=== PATIENT | female | born 1945 | race Caucasian/White ===

== ENCOUNTER 2016-09-14 14:56 | Emergency (ER) | payer OTHER, MEDICARE ==
[2016-09-14 15:01] VITALS: BMI 39.4
[2016-09-14 15:27] VITALS: BP 165/87
--- NOTE | 2016-09-14 15:51 | DR.GENAD ---
HPI - PCP Primary Care Physician: lópez - Complaint/Symptoms Chief Complaint Doctors Comments: Patient states she noticed her right eye dilated today with blurred vision and headache. Family states she has had this problem for 2-3 days but the patient stated she noticed the problem two days ago. States the pain is 4-5 of 10. States this is not the worst headache of her life and she has had migraines before. She has nausea but denies chest pain of SOB. States she had cataract surgery on the left eye before but denies history glaucoma. She is a patient of Dr. Vera but has not seen him in his office yet. States she goes to the [place]. She denies any eye trauma. Chief Complaint:: patient stated she woke up this morning and noticed her right eye was dilated. she has been having headaches and blurred vision. - Nurses notes reviewed Nurses Notes Review: Yes - Source History Provided: Patient - Mode of Arrival Mode of Arrival: Ambulatory - Timing Onset of Chief Complaint: 09/12/16 Came on: Suddenly - Duration Duration: Constant How lon Duration: Days - Location Location: right eye dilated - Severity Severity: Moderate - Modifying Factors Worsens:: nothing Improves:: nothing PMH - PMH Past Medical History: Yes Past Medical History: Dyslipidemia, Hypertension, Hypothyroidism Past Surgical History: Yes Surgical History: Appendectomy, Hysterectomy Past Surgical History Comment: eye surgery - Family History History of Family Medical Conditions: No - Social History Does patient currently use any type of tobacco product: No Have you used tobacco products in the last 12 months: No Type of Tobacco Use: None Does any household member use tobacco: No Alcohol Use: None Do you use any recreational Drugs:: No Lives With: Family Lives Where: Home - infectious screening In the last 2 months have you had wt loss of >10#?: NO Have you had fever, night sweats or hemotysis?: No Have you traveled outside the country in the last 6 months?: No Isolation: Standard ROS - Review of Systems Constitutional: No Symptoms Reported. negative: See HPI, Chills, Diaphoresis, Fever, Malaise, Weakness, Irritable, Fatigue, Loss of Appetite, Other Eyes: No Symptoms Reported, Eye Pain, Blurred Vision ENTM: No Symptoms Reported. negative: See HPI, Ear Pain, Ear Discharge, Pulling on Ears, Hearing Loss, Nose Pain, Nose Discharge, Epistaxis, Nose Congestion, Mouth Pain, Mouth Swelling, Loose Teeth, Drooling, Throat Pain, Throat Swelling, Ear Foreign Body Respiratoy: No Symptoms Reported. negative: See HPI, Productive Cough, Non- Productive Cough, Moist Cough, Dry Cough, Hacking Cough, Barking Cough, Brassy Cough, Orthopnea, Short of Breath, Stridor, Wheezing, Hemoptysis, Other Cardiovascular: No Symptoms Reported Gastrointestinal/Abdominal: No Symptoms Reported. negative: See HPI, Abdominal Pain, Constipation, Diarrhea, Nausea, Vomiting, Food Intolerance, Other Genitourinary: No Symptoms Reported Neurological: No Symptoms Reported Musculoskeletal: No Symptoms Reported Integumentary: No Symptoms Reported Hematologic/Lymphatic: No Symptoms Reported Endocrine: No Symptoms Reported Psychiatric: No Symptoms Reported PE - Vital Signs Vitals: Temperature 98.1 F Pulse Rate [Left Brachial] 65 Pulse Rate 72 Respiratory Rate 16 Blood Pressure [Left Arm] 165/87 Blood Pressure 189/89 O2 Sat by Pulse Oximetry 99 - General Limitations: No Limitations General Appearance: Alert, In Distress (mild) - Head Head Exam: Normal Inspection, Atraumatic, Normocephalic - Eyes Eye exam: Normal Appearance, EOMI. negative: PERRL, Scleral Icterus (good range of motion eyes; no problems with eyelids; no pytosis), Conjunctival Injection, Nystagmus, Miosis, Mydrasis, Periorbital Swelling, Periorbital Tenderness, Other - ENT ENT Exam: Normal Exam, Normal Oropharynx, Normal External Ear Exam, Mucous Membranes Moist, TM's Normal Bilaterally External Ear Exam: Normal External Inspection TM/Canal Exam: Bilateral Normal Nose Exam: Normal Nose Exam Mouth Exam: Normal Inspection Throat Exam: Normal Inspection - Neck Neck Exam: Normal Inspection, Full ROM, Trachea Midline - Chest Chest Inspection: Normal Inspection, Symmetric Chest Wall Rise - Respiratory Respiratory Exam: Normal Lung Sounds Bilat Respiratory Exam: Bilateral Clear to Auscultation - Cardiovascular Cardiovascular Exam: Regular Rate, Normal Rhythm, Normal Heart Sounds - Abdominal Exam Abdominal Exam: Normal Inspection, Normal Bowel Sounds, Soft Abdominal Tenderness: negative: RUQ, RLQ, LUQ, LLQ, Epigastrium, Suprapubic, Diffuse, Mild, Moderate, Severe, Other - Extremities Extremities Exam: Normal Inspection, Full ROM, Normal Capillary Refill. negative: Tenderness, Edema, Joint Swelling, Calf Tenderness, Other - Back Back Exam: Normal Inspection, Full ROM. negative: Tenderness, (R) CVA Tenderness, (L) CVA Tenderness, Muscle Spasm, Paraspinal Tenderness, Vertebral Tenderness, Rashes, (R) Sciatic Notch Tenderness, (L) Sciatic Notch Tendern, (R ) Straight Leg Raise, (L) Straight Leg Raise, Other - Neurologic Neurological Exam: Alert, Oriented X3, CN II-XII Intact, Normal Gait, Reflexes Normal. negative: Motor Sensory Deficit (Babinski absent; tongue midline) - Psychiatric Psychiatric Exam: Normal Affect, Normal Mood. negative: Depressed, Agitated, Anxious, Flat Affect, Manic, Homicidal Ideation, Suicidal Ideation, Other - Skin Skin Exam: Warm, Dry, Intact, Normal Color Course - Consultation Called: 16:31 Call Returned: 16:31 Consultation Comments: Dr. Mccurdy consulted states he will see patient in his office Friday morning or she can call his office for the on-call number and call him today if she has increased pain or visual changes. - Education/Counseling Education/Counseling: Patient, Family Educated On: Treatment, Diagnosis, Needs for Follow Up ROR - Labs Reviewed Laboratory Results Reviewed?: Yes (All labs and x-ray results reviewed and discussed with patient and spouse) Result Diagrams: 09/14/16 15:45 09/14/16 15:45 Laboratory: WBC 6.1 X10^3/uL (3.6-10.0) 09/14/16 15:45 RBC 4.69 X10^6/uL (3.5-5.4) 09/14/16 15:45 Hgb 13.3 g/dL (12.0-16.0) 09/14/16 15:45 Hct 39.3 % (36.0-47.0) 09/14/16 15:45 MCV 83.7 fL (80.0-100.0) 09/14/16 15:45 MCH 28.3 pg (27.0-34.0) 09/14/16 15:45 MCHC 33.8 g/dL (33.0-35.0) 09/14/16 15:45 RDW 13.6 % (11.6-16.5) 09/14/16 15:45 Plt Count 218 X10^3/uL (150.0-450.0) 09/14/16 15:45 MPV 7.3 fL (7.4-11.0) L 09/14/16 15:45 Neut % 49.4 % (42.0-75.0) 09/14/16 15:45 Lymph % 39.3 % (21.0-51.0) 09/14/16 15:45 [place] % 7.8 % (0.0-13.0) 09/14/16 15:45 Eos % 2.5 % (0.9-2.9) 09/14/16 15:45 Baso % 1.0 % (0.2-1.0) 09/14/16 15:45 Neut # 3.0 x10^3/uL (2.2-4.8) 09/14/16 15:45 Lymph # 2.4 X10^3/uL (1.3-2.9) 09/14/16 15:45 [place] # 0.5 x10^3/uL (0.3-0.8) 09/14/16 15:45 Eos # 0.2 x10^3/uL (0.0-0.2) 09/14/16 15:45 Baso # 0.1 X10^3/uL (0.0-0.1) 09/14/16 15:45 Absolute Nucleated RBC 0.0 /100WBC 09/14/16 15:45 Sodium 145 mmol/L (136-145) 09/14/16 15:45 Corrected Sodium TNP 09/14/16 15:45 Potassium 3.8 mmol/L (3.5-5.1) 09/14/16 15:45 Chloride 107 mmol/L (98-107) 09/14/16 15:45 Carbon Dioxide 25.1 mmol/L (21-32) 09/14/16 15:45 BUN 14 mg/dL (7-18) 09/14/16 15:45 Creatinine 0.87 mg/dL (0.55-1.02) 09/14/16 15:45 Est GFR (MDRD) Af Amer > 60 (>60) 09/14/16 15:45 Est GFR (MDRD) Non-Af > 60 (>60) 09/14/16 15:45 Glucose 90 mg/dL (65-99) 09/14/16 15:45 Calcium 9.0 mg/dL (8.5-10.1) 09/14/16 15:45 Corrected Calcium TNP 09/14/16 15:45 Total Bilirubin 0.30 mg/dL (0.2-1.0) 09/14/16 15:45 AST 15 Units/L (15-37) 09/14/16 15:45 ALT 24 Units/L (12-78) 09/14/16 15:45 Alkaline Phosphatase 81 Units/L (46-116) 09/14/16 15:45 Total Protein 7.6 g/dL (6.4-8.2) 09/14/16 15:45 Albumin 4.0 g/dL (3.4-5.0) 09/14/16 15:45 Globulin 3.6 g/dL (2.5-4.5) 09/14/16 15:45 Albumin/Globulin Ratio 1.1 Ratio (1.1-2.1) 09/14/16 15:45 - XRAY XRAY Interpreted by: Radiologist (CT head: No acut eintracranial abnormality identified.) - Diagnosis Discharge Problem: Pain in right eye, dilated right eye, Hypertension, Blurred vision, right eye - Discharge Plan Disposition: 01 HOME, SELF-CARE Condition: Stable - Follow ups/Referrals Follow ups/Referrals: Too Vera [Primary Care Provider] - 3 days LATRICE MCCURDY [CONSULTING PHYSICIAN] - 3 days - Instructions Instructions: Blurred Vision, Hypertension
[2016-09-14 15:55] LABS: BASOPHILS # (AUTO) 0.1 X10^3/uL (0.0-0.1); EOSINOPHILS # (AUTO) 0.2 x10^3/uL (0.0-0.2); EOSINOPHILS % (AUTO) 2.5 % (0.9-2.9); HEMATOCRIT 39.3 % (36.0-47.0); HEMOGLOBIN 13.3 g/dL (12.0-16.0); LYMPHOCYTES # (AUTO) 2.4 X10^3/uL (1.3-2.9); LYMPHOCYTES % (AUTO) 39.3 % (21.0-51.0); MEAN CORPUSCULAR HEMOGLOBIN 28.3 pg (27.0-34.0); MEAN CORPUSCULAR HGB CONC 33.8 g/dL (33.0-35.0); MEAN CORPUSCULAR VOLUME 83.7 fL (80.0-100.0); MEAN PLATELET VOLUME 7.3 fL (7.4-11.0); MONOCYTES # (AUTO) 0.5 x10^3/uL (0.3-0.8); MONOCYTES % (AUTO) 7.8 % (0.0-13.0); NEUTROPHILS % (AUTO) 49.4 % (42.0-75.0); PLATELET COUNT 218 X10^3/uL (150.0-450.0); RED BLOOD COUNT 4.69 X10^6/uL (3.5-5.4); RED CELL DISTRIBUTION WIDTH 13.6 % (11.6-16.5); WHITE BLOOD COUNT 6.1 X10^3/uL (3.6-10.0)
[2016-09-14 16:03] LABS: ALANINE AMINOTRANSFERASE 24 Units/L (12-78); ALKALINE PHOSPHATASE 81 Units/L (46-116); ASPARTATE AMINO TRANSFERASE 15 Units/L (15-37); BLOOD UREA NITROGEN 14 mg/dL (7-18); CARBON DIOXIDE 25.1 mmol/L (21-32); CHLORIDE 107 mmol/L (98-107); CREATININE 0.87 mg/dL (0.55-1.02); GLUCOSE 90 mg/dL (65-99); SODIUM 145 mmol/L (136-145); TOTAL PROTEIN 7.6 g/dL (6.4-8.2); eGFR BLACK RACES > 60 (>60); eGFR NON BLACK RACES > 60 (>60)
--- NOTE | 2016-09-14 16:04 | CT ---
CT head without contrast Indication: Right eye dilated Comparison: None Technique: CT images of the head were obtained without contrast. Automatic exposure control was util ized. Findings: There is generalized mild age-appropriate atrophy. No acute bleed, mass, mass effect, or a bnormal extra-axial collection is identified. No acute skeletal abnormality is seen. The visualized paranasal sinuses and mastoid air cells are clear. Impression: No acute intracranial abnormality identified. Reported By:
== END 2016-09-14 16:54 | disposition home or self-care (01) ==
LOC: ER 15:05
DX: H57.11 Ocular pain, right eye (principal); H57.051 Tonic pupil, right eye; I10 Essential (primary) hypertension; H53.8 Other visual disturbances; R51 Headache
CPT/HCPCS: 36415; 70450; 80053; 85025; 99282; 99283

== ENCOUNTER → 2016-09-16 | Outpatient (CLI) | payer OTHER, MEDICARE ==
[2016-09-14 15:27] VITALS: BP 165/87
[~2016-09-16] MED LIST: VALIUM PO ONE
--- NOTE | 2016-09-16 14:12 | MRI ---
STUDY: MRA OF THE BRAIN HISTORY: Headaches and dizziness. Pupil involving 3rd nerve palsy. Comparison: None. Technique: 3D [id number] imaging of the intracranial circulation was performed. Findings: 3D [id number] MRA examination shows normal flow related enhancement in the major intracranial ar teries. There is no evidence of hemodynamically significant stenosis or aneurysm. There are bilatera l posterior communicating arteries. The left vertebral artery is dominant. IMPRESSION: 1. Normal MRA of the brain. 2. If there remains strong clinical concern for cerebral aneurysm, then would consider a CTA of the head or catheter angiogram further evaluation. Reported By:
--- NOTE | 2016-09-16 14:27 | MRI ---
Indication: Headaches and 3rd nerve palsy. Exam: MRI brain with and without contrast. Technique: Routine multiplanar multi sequence imaging was performed through the brain with thin sect ion targeted axial and coronal images obtained through the orbits before and after administration of 20 cc of Omniscan. Comparison: CT head 09/14/2016. Findings: The ventricles are normal . There is no abnormal signal on the diffusion-weighted data set which would suggest any type of acute ischemia . There are several small punctate areas of abnormal signal scattered along the periventricular white matter bilaterally . There is no extra-axial fluid collection or mass. No enhancing lesion or mass is seen and there is no extra-axial fluid collectio n. The intra-ocular muscles and optic nerves are symmetric and normal size and signal intensity thro ughout. No intraorbital mass or fluid is seen and there is no abnormal enhancement seen. The pituita ry gland and midline structures are unremarkable. There is a 2.5 x 1.4 cm slightly expansile cystic appearing lesion in the right parietal region of the skull superiorly and laterally which correlates with the lucent lesion seen on the recent CT scan. The lesion is low signal on T1 and homogeneously increased in signal on T2. The lesion is otherwise fairly well-circumscribed with no surrounding ed jason and does not appear to enhance. The 7th and 8th nerve complexes are symmetric and normal size an d signal intensity. The visualized vascular structures show normal flow voids. Impression: Minimal chronic microischemic changes in the deep white matter with no acute intracranial abnormalit y seen and specifically, unremarkable orbits . 2.5 cm cystic-appearing lesion within the right parietal bone which is slightly expansile and does n ot enhance. This is seen on the recent CT scan and could represent an intraosseous cyst or hemangiom a or less likely a plasmacytoma vs bone lesion of other etiology. Suggest correlating with a bone sc an to evaluation of the metabolic activity of the lesion. Reported By:
== END ==
LOC: RAD 10:09
PROVIDERS: ATTEND Optometrist
DX: H49.01 Third [oculomotor] nerve palsy, right eye (principal)
CPT/HCPCS: 70544; 70553

== ENCOUNTER → 2017-09-03 | Outpatient (CLI) | payer OTHER ==
--- NOTE | 2017-09-03 16:26 | MRI ---
HISTORY: Low back pain with left lower extremity radiculopathy, spondylolisthesis Study: MRI lumbar spine without contrast Comparison: None Technique: Multisequence, multiplanar imaging of the lumbar spine was performed without the administration of IV contrast. Findings: Imaging of the lumbar spine demonstrates mild, grade 1, retrolisthesis of L2 on L3, likely secondary to facet hypertrophy at this level. There is also minimal retrolisthesis of L5 on S1 and L1 on L2 as well. Vertebral body height is maintained throughout. No acute or chronic compression fracture is vis ualized. There is no suspicious bone marrow edema. Mljn-ah-flqkrpoj loss of disc space height and adv anced degenerative endplate changes are present at the L4-L5 level. Mild degenerative endplate change s are visualized at the remaining lumbar levels. The conus terminates at the L2 superior endplate. Ev aluation of the pre and paravertebral soft tissues is unremarkable. Incidental note is made of a left circumaortic renal vein. T12-L1: At the T12-L1 level there is facet hypertrophy without significant canal stenosis or neurofor aminal compromise. L1-L2: At the L1-L2 level there is a mild central disc bulge and mild facet hypertrophy, resulting in no significant canal stenosis or neuroforaminal compromise. L2-L3: At the L2-L3 level there is a broad-based disc bulge and facet hypertrophy as well as mildly p rominent epidural fat, all resulting in mild canal stenosis but no significant neuroforaminal comprom ise. L3-L4: At the L3-L4 level there is a tiny left lateral recess disc protrusion superimposed upon mild broad-based disc ridging and facet hypertrophy with ligamentum flavum thickening, all resulting in mi ld canal stenosis as well as minimal bilateral neuroforaminal compromise. L4-L5: At the L4-L5 level there is a small left lateral recess disc protrusion superimposed upon a mi ld broad-based disc bulge as well as facet hypertrophy and ligamentum flavum thickening, all resultin g in [id number] neuroforaminal compromise on the left and mild neuroforaminal compromise on the right but no significant canal stenosis. L5-S1: At the L5-S1 level a left lateral recess disc protrusion superimposed upon a broad-based disc bulge as well as advanced facet hypertrophy, resulting in moderate to severe neuroforaminal compromis e on the left and minimal neuroforaminal compromise on the right but no significant canal stenosis. IMPRESSION: 1. Multilevel degenerative disc disease and facet arthropathy as detailed above, most significant at the L5-S1 level, where there is moderate to severe neuroforaminal compromise on the left and minimal neuroforaminal compromise on the right. 2. Multilevel mild spondylolistheses as above Reported By:
== END | disposition home or self-care (01) | DRG 552 ==
LOC: RAD 14:44
PROVIDERS: ATTEND Internal Medicine Rheumatology
DX: M54.16 Radiculopathy, lumbar region (principal); M70.62 Trochanteric bursitis, left hip; M70.52 Other bursitis of knee, left knee; M43.17 Spondylolisthesis, lumbosacral region
CPT/HCPCS: 72148

== ENCOUNTER 2018-01-21 14:30 | Observation (INO) ==
--- NOTE | 2018-01-21 15:12 | CT ---
HISTORY: Headache, blurry vision Study: CT HEAD WITHOUT CONTRAST Comparison: 09/14/2016 Technique: Multiple axial images of the brain were obtained from the skull base to the vertex without administra tion of IV contrast. Findings: There is no evidence of an acute intracranial hemorrhage or extra-axial fluid collection. There is no evidence of mass effect, midline shift, or cerebral edema. Ventricular size is normal. Cortical alonso -white matter differentiation is preserved. There is no sulcal effacement identified. There is no wel l demarcated, acute, large artery territorial infarct identified on the initial CT of the head. The c alvarium is intact. Paranasal sinuses and mastoid air cells are clear. Hyperostosis frontalis interna is observed. IMPRESSION: 1. No acute intracranial abnormality can be identified. If there is clinical concern for an occult neurologic abnormality, follow-up MRI is recommended for i mproved sensitivity. Reported By:
[2018-01-21 15:48] LABS: BASOPHILS % (AUTO) 0.3 % (0.2-1.0); EOSINOPHILS # (AUTO) 0.3 x10^3/uL (0.0-0.2); HEMATOCRIT 39.3 % (36.0-47.0); HEMOGLOBIN 13.4 g/dL (12.0-16.0); LYMPHOCYTES % (AUTO) 29.4 % (21.0-51.0); MEAN CORPUSCULAR HEMOGLOBIN 28.8 pg (27.0-34.0); MEAN CORPUSCULAR VOLUME 84.6 fL (80.0-100.0); MEAN PLATELET VOLUME 7.1 fL (7.4-11.0); MONOCYTES # (AUTO) 0.5 x10^3/uL (0.3-0.8); MONOCYTES % (AUTO) 6.8 % (0.0-13.0); NEUTROPHILS % (AUTO) 59.5 % (42.0-75.0); PLATELET COUNT 232 X10^3/uL (150.0-450.0); RED BLOOD COUNT 4.65 X10^6/uL (3.5-5.4); WHITE BLOOD COUNT 6.7 X10^3/uL (3.6-10.0)
[2018-01-21 16:09] LABS: BLOOD UREA NITROGEN 10 mg/dL (7-18); CALCIUM 8.6 mg/dL (8.5-10.1); CARBON DIOXIDE 28.2 mmol/L (21-32); CHLORIDE 106 mmol/L (98-107); COR NA(FOR HYPERGLY) 143 mmol/L (136-145); CREATININE 0.94 mg/dL (0.55-1.02); SODIUM 142 mmol/L (136-145); TROPONIN I < 0.02 ng/mL (0-1.5); eGFR NON BLACK RACES > 60 (>60)
[2018-01-21 16:24] LABS: ALANINE AMINOTRANSFERASE 28 Units/L (12-78); ALBUMIN 3.5 g/dL (3.4-5.0); ALKALINE PHOSPHATASE 82 Units/L (46-116); ASPARTATE AMINO TRANSFERASE 13 Units/L (15-37); CKMB % 2.3 % (<4); CREATINE KINASE 43 Units/L (26-192); CREATINE KINASE MB < 1.0 ng/mL (0-4.0); TOTAL PROTEIN 6.8 g/dL (6.4-8.2)
[2018-01-21] MEDS ORDERED: ANTIVERT TAB 25 MG PO PRN (16:31)
[2018-01-21 17:52] VITALS: BMI 39.8
[2018-01-21] MEDS ORDERED: ALBUTEROL SULFATE IN SCH (21:00)
[2018-01-21] MEDS ORDERED: VENTOLIN or PROAIR HFA IN SCH (21:00)
[2018-01-21] MEDS ORDERED: ZOCOR TAB 20 MG PO SCH (21:00)
[2018-01-21] MEDS: PROVENTIL NEB TX 0.083% 2.5MG/ 3ML NEB SCH (21:18)
[2018-01-21] MEDS ORDERED: ROBITUSSIN DM PO PRN (22:51)
--- NOTE | 2018-01-22 00:03 | DR.HEADACH ---
HPI Time Seen Time seen: 14:50 Primary Care Physician Primary Care Physician: CT Complaint/Symptoms Chief Complaint:: PT. STATES AROUND 30 MINUTES [employer] HER VISION BECAME BLURRY IN HER RIGHT EYE, SHE GOT A HEADACHE, AND WAS UNABLE TO SPEAK. THE EPISODE LASTED ABOUT 10-15 MINUTES. SYMPTOMS HAVE RESOLVED EXCEPT FOR HER HEADACHE. Source History Provided: Patient and Family Member Mode of Arrival Mode of Arrival: Ambulatory Timing Onset of Chief Complaint: 01/21/18 PMH PMH Past Medical History: Yes Past Medical History: Dyslipidemia, Hypertension and Hypothyroidism Past Surgical History: Yes Surgical History: Appendectomy and Hysterectomy Family History History of Family Medical Conditions: Yes Family Medical History: [place] Social History Does patient currently use any type of tobacco product: No Have you used tobacco products in the last 12 months: No Type of Tobacco Use: None Does any household member use tobacco: No Alcohol Use: None Do you use any recreational Drugs:: No Lives With: Spouse Lives Where: Home infectious screening In the last 2 months have you had wt loss of >10#?: NO Have you had fever, night sweats or hemotysis?: No Have you traveled outside the country in the last 6 months?: No Isolation: Standard PE Vital Signs Vitals: Temperature 98.4 F Pulse Rate [Left Brachial] 73 Pulse Rate 76 Respiratory Rate 20 Blood Pressure [Right Arm] 134/75 Blood Pressure [Left Arm] 182/88 Blood Pressure 140/70 O2 Sat by Pulse Oximetry 97 General Limitations: No Limitations General Appearance: Alert and In No Apparent Distress Head Head Exam: Normal Inspection, Atraumatic and Normocephalic Eyes Eye exam: Normal Appearance, PERRL and EOMI Eyelids: Normal Inspection: Bilateral Pupils: Regular, Round: Bilateral Sclera/Conjunctival: Normal Inspection: Bilateral ENT ENT Exam: Normal Exam, Normal Oropharynx and Normal External Ear Exam External Ear Exam: Normal External Inspection and Auricular Hematoma TM/Canal Exam: Bilateral: Normal Nose Exam: Normal Nose Exam Mouth Exam: Normal Inspection Teeth Exam: Normal Inspection Neck Neck Exam: Normal Inspection Chest Chest Inspection: Normal Inspection and Symmetric Chest Wall Rise Respiratory Respiratory Exam: Normal Lung Sounds Bilat Respiratory Exam: Bilateral: Clear to Auscultation Cardiovascular Cardiovascular Exam: Regular Rate and Normal Rhythm Abdominal Exam Abdominal Exam: Normal Inspection and Normal Bowel Sounds Abdominal Tenderness: negative RUQ, RLQ and LUQ Extremities Extremities Exam: Normal Inspection and Full ROM Back Back Exam: Normal Inspection Neurologic Neurological Exam: Alert, Oriented X3 and CN II-XII Intact Psychiatric Psychiatric Exam: Normal Affect and Normal Mood Skin Skin Exam: Warm, Dry and Intact COURSE Consultation Called: 15:15 Call Returned: 15:25 Consultation Comments: Dr. Sher agreed to admit for further evaluation ROR Labs Reviewed Result Diagrams: 01/21/18 15:35 01/21/18 15:35 Laboratory: WBC 6.7 X10^3/uL (3.6-10.0) 01/21/18 15:35 RBC 4.65 X10^6/uL (3.5-5.4) 01/21/18 15:35 Hgb 13.4 g/dL (12.0-16.0) 01/21/18 15:35 Hct 39.3 % (36.0-47.0) 01/21/18 15:35 MCV 84.6 fL (80.0-100.0) 01/21/18 15:35 MCH 28.8 pg (27.0-34.0) 01/21/18 15:35 MCHC 34.0 g/dL (33.0-35.0) 01/21/18 15:35 RDW 14.0 % (11.6-16.5) 01/21/18 15:35 Plt Count 232 X10^3/uL (150.0-450.0) 01/21/18 15:35 MPV 7.1 fL (7.4-11.0) L 01/21/18 15:35 Neut % (Auto) 59.5 % (42.0-75.0) 01/21/18 15:35 Lymph % (Auto) 29.4 % (21.0-51.0) 01/21/18 15:35 [place] % (Auto) 6.8 % (0.0-13.0) 01/21/18 15:35 Eos % (Auto) 4.0 % (0.9-2.9) H 01/21/18 15:35 Baso % (Auto) 0.3 % (0.2-1.0) 01/21/18 15:35 Neut # (Auto) 4.0 x10^3/uL (2.2-4.8) 01/21/18 15:35 Lymph # (Auto) 2.0 X10^3/uL (1.3-2.9) 01/21/18 15:35 [place] # (Auto) 0.5 x10^3/uL (0.3-0.8) 01/21/18 15:35 Eos # (Auto) 0.3 x10^3/uL (0.0-0.2) H 01/21/18 15:35 Baso # (Auto) 0.0 X10^3/uL (0.0-0.1) 01/21/18 15:35 Absolute Nucleated RBC 0.0 /100WBC 01/21/18 15:35 INR Target Range - 01/21/18 15:35 INR 0.92 (0.8-1.3) 01/21/18 15:35 APTT 26.7 SECONDS (22.9-36.5) 01/21/18 15:35 PTT Comment - 01/21/18 15:35 Sodium 142 mmol/L (136-145) 01/21/18 15:35 Corrected Sodium 143 mmol/L (136-145) 01/21/18 15:35 Potassium 3.7 mmol/L (3.5-5.1) 01/21/18 15:35 Chloride 106 mmol/L (98-107) 01/21/18 15:35 Carbon Dioxide 28.2 mmol/L (21-32) 01/21/18 15:35 BUN 10 mg/dL (7-18) 01/21/18 15:35 Creatinine 0.94 mg/dL (0.55-1.02) 01/21/18 15:35 Est GFR (MDRD) Af Amer > 60 (>60) 01/21/18 15:35 Est GFR (MDRD) Non-Af > 60 (>60) 01/21/18 15:35 Glucose 121 mg/dL (65-99) H 01/21/18 15:35 Calcium 8.6 mg/dL (8.5-10.1) 01/21/18 15:35 Corrected Calcium TNP 01/21/18 15:35 Total Bilirubin 0.40 mg/dL (0.2-1.0) 01/21/18 15:35 AST 13 Units/L (15-37) L 01/21/18 15:35 ALT 28 Units/L (12-78) 01/21/18 15:35 Alkaline Phosphatase 82 Units/L (46-116) 01/21/18 15:35 Creatine Kinase 43 Units/L (26-192) 01/21/18 15:35 CK-MB (CK-2) < 1.0 ng/mL (0-4.0) 01/21/18 15:35 CK/CKMB % Calc 2.3 % (<4) 01/21/18 15:35 Troponin I < 0.02 ng/mL (0-1.5) 01/21/18 15:35 Total Protein 6.8 g/dL (6.4-8.2) 01/21/18 15:35 Albumin 3.5 g/dL (3.4-5.0) 01/21/18 15:35 Globulin 3.3 g/dL (2.5-4.5) 01/21/18 15:35 Albumin/Globulin Ratio 1.1 Ratio (1.1-2.1) 01/21/18 15:35 S. pyogenes (TEM-PCR) Not detected (NOT DETECT) 01/21/18 22:52 XRAY XRAY Interpreted by: Radiologist XRAY Findings: No acute intracranial abnormalitycan be identified. Diagnosis Discharge Problem: TIA (transient ischemic attack)
[2018-01-22] MEDS ORDERED: POTASSIUM CHLORIDE LIQ 20 MEQ UDC PO PRN (02:30)
[2018-01-22] MEDS ORDERED: K-LYTE EFFERVESCENT PO PRN (02:30)
[2018-01-22 05:27] LABS: BASOPHILS # (AUTO) 0.1 X10^3/uL (0.0-0.1); BASOPHILS % (AUTO) 1.1 % (0.2-1.0); EOSINOPHILS # (AUTO) 0.2 x10^3/uL (0.0-0.2); EOSINOPHILS % (AUTO) 3.5 % (0.9-2.9); HEMATOCRIT 36.7 % (36.0-47.0); HEMOGLOBIN 12.7 g/dL (12.0-16.0); LYMPHOCYTES # (AUTO) 2.1 X10^3/uL (1.3-2.9); LYMPHOCYTES % (AUTO) 38.9 % (21.0-51.0); MEAN CORPUSCULAR HEMOGLOBIN 29.1 pg (27.0-34.0); MEAN CORPUSCULAR HGB CONC 34.5 g/dL (33.0-35.0); MEAN CORPUSCULAR VOLUME 84.2 fL (80.0-100.0); MEAN PLATELET VOLUME 7.5 fL (7.4-11.0); MONOCYTES # (AUTO) 0.5 x10^3/uL (0.3-0.8); MONOCYTES % (AUTO) 8.8 % (0.0-13.0); NEUTROPHILS # (AUTO) 2.5 x10^3/uL (2.2-4.8); NEUTROPHILS % (AUTO) 47.7 % (42.0-75.0); PLATELET COUNT 204 X10^3/uL (150.0-450.0); RED BLOOD COUNT 4.36 X10^6/uL (3.5-5.4); RED CELL DISTRIBUTION WIDTH 14.3 % (11.6-16.5); WHITE BLOOD COUNT 5.3 X10^3/uL (3.6-10.0)
[2018-01-22 05:34] LABS: ALANINE AMINOTRANSFERASE 25 Units/L (12-78); ALBUMIN 3.2 g/dL (3.4-5.0); ALKALINE PHOSPHATASE 75 Units/L (46-116); ASPARTATE AMINO TRANSFERASE 11 Units/L (15-37); BLOOD UREA NITROGEN 10 mg/dL (7-18); CALCIUM 8.8 mg/dL (8.5-10.1); CARBON DIOXIDE 28.8 mmol/L (21-32); CHLORIDE 106 mmol/L (98-107); COR CA(FOR HYPOALB) 9.4 mg/dL (8.5-10.1); CREATININE 0.96 mg/dL (0.55-1.02); SODIUM 144 mmol/L (136-145); TOTAL PROTEIN 6.4 g/dL (6.4-8.2); eGFR NON BLACK RACES > 60 (>60)
[2018-01-22] MEDS ORDERED: OMEPRAZOLE 20 MG PO SCH (09:00)
[2018-01-22] MEDS: PROVENTIL NEB TX 0.083% 2.5MG/ 3ML NEB SCH (09:00)
[2018-01-22] MEDS: FLONASE NASAL SPRAY ENOSTRIL SCH ×2 (09:10→09:18)
[2018-01-22] MEDS: COREG TAB 6.25 MG PO SCH ×2 (09:10→09:18)
[2018-01-22] MEDS: COZAAR PO SCH ×2 (09:10→09:18)
[2018-01-22] MEDS: SINGULAIR TAB 10 MG PO SCH ×2 (09:11→09:18)
[2018-01-22] MEDS: SYNTHROID 75 mcg TAB PO SCH ×2 (09:11→09:18)
[2018-01-22] MEDS: PriLOSEC PO SCH ×2 (09:11→09:18)
[2018-01-22] MEDS: HYDROCHLOROTHIAZIDE 12.5 MG CAP PO SCH ×2 (09:11→09:18)
[2018-01-22] MEDS: ZyrTEC TAB 10 MG PO SCH ×2 (09:11→09:19)
[2018-01-22] MEDS ORDERED: NS 100 ML IV 100 ML IV ONE (09:20)
[2018-01-22] MEDS ORDERED: VALIUM ONE (09:30)
[2018-01-22] MEDS ORDERED: VALIUM PO ONE (09:31)
--- NOTE | 2018-01-22 11:35 | MRI ---
MRI BRAIN WITHOUT CONTRAST CLINICAL HISTORY: 72-year-old female with stroke-like symptoms. COMPARISON: CT head this date. MR brain 09/16/2016 TECHNIQUE: Multiplanar, multisequence MR images of the brain were obtained without contrast. FINDINGS: There is no evidence of diffusion restriction. The craniocervical junction is normal. Pitui tary and optic nerve complex are normal. Multifocal punctate T2 FLAIR signal hyperintensities are pre sent within the periventricular and supraventricular white matter that are nonspecific in appearance but most likely to represent microvascular white matter ischemic changes. Normal signal characteristi cs and morphology are demonstrated within the cerebral cortex, corpus callosum, deep alonso nuclei, bra instem and cerebellum. The major vascular flow voids, to include the dural venous sinuses, are intact . No abnormal susceptibility on gradient imaging. Age advanced cortical volume loss is present, with commensurate sulcal and ventricular prominence. The basilar cisterns are normal. Stable size and appearance of mildly lobulated intra diploic lesion within the right parietal bone th at demonstrates isointensity to CSF on T1 and T2 weighted sequences with suppression on FLAIR lack of enhancement on prior MR brain with contrast. Bilateral lens implants. The orbits and globes are otherwise within normal limits. The paranasal sinu ses, tympanic cavities and mastoids are clear. IMPRESSION: 1. No acute ischemic or hemorrhagic insult. 2. Mild, chronic microvascular white matter ischemic disease with age advanced volume loss. 3. Lesion within the intra diploic space of the right parietal bone most likely represents pacchionia n granulation or possibly intra diploic arachnoid cyst, both benign. Reported By:
--- NOTE | 2018-01-22 13:15 | CT ---
CTA neck Indication: Blurry vision and right eye, headache, Technique: Helical CT images of the neck were obtained with IV contrast. Reformatted images in the co khari and sagittal planes and 3D MIP reformatted images were also generated for review. Comparison: None Findings: There is a normal three great vessel arch. There is mild calcification of the left greater than right carotid bifurcations. The common and cervical portions of the internal and external carotid arteries are otherwise patent without flow limiting stenosis. The left vertebral artery is dominant. Both ve rtebral arteries and visualized vertebrobasilar system is otherwise patent. Review of bone windows demonstrate moderate degenerative disc disease, uncovertebral hypertrophy face t arthropathy of the mid and lower cervical spine. No acute or aggressive osseous abnormality is othe rwise identified. Soft tissues of the neck are unremarkable and the visualized lung apices are clear. Impression: Mild calcification of the left greater than right carotid bifurcations. Otherwise no evidence of cervical arterial high-grade stenosis or acute abnormality. Reported By:
--- NOTE | 2018-01-22 13:18 | DR.H&P ---
H&P - History & Physical for Day of: H&P Date: 01/21/18 - Chief Complaint Chief Complaint: RIGHT DAVID, POSSIBLE TIA PER FAMILY - History of Present Illness History of Present Illness: 72 WF ER ADMISSION AFTER PRESENTING WITH CO RIGHT SIDE DAVID, INTRACTABLE STARTED APPROX 30MINS PRIOR TO ARRIVAL. FAMILY REPORTS PT HAD EPISODE OF CONFUSION, DIFFICULTY SPEAKING FOLLOWED BY INTRACTABLE RIGHT FRONTAL DAVID. EPISODE HAD RESOLVED UPON ARRIVAL TO ER, CT HEAD W/O ACUTE FINDINGS. PT ADMITTED FOR TREATMENT AND EVALUATION OF ACUTE ILLNESS R/O CVA. PT HAS PMH OF HTN, ASTHMA, HYPERLIPIDEMIA, OBESITY. PT STATES SHE HAD INCIDENT INVOLVING RIGHT EYE APPROX ONE YEAR AGO AND HAD VISION EXAM AND MRI/MRA WITHOUT CVA FINDINGS. DENIES ANY CP OR SOB, DIZZINESS OR VISION CHANGES ON ASSESSMENT - Past Medical History Past Medical History: Asthma, Dyslipidemia, Hypertension, Hypothyroidism - Past Surgical History Surgical History: Appendectomy, Hysterectomy - Family History Family Medical History: [place] - Social History Does patient currently use any type of tobacco product: No Have you used tobacco products in the last 12 months: No Type of Tobacco Use: None Does any household member use tobacco: No Alcohol Use: None Drug Use: Prescription Drugs - Medications Home Medications: amoxicillin Allergy (Verified 01/21/18 17:22) RASH ceftriaxone [From Rocephin] Allergy (Verified 01/21/18 17:20) RASH flunisolide Allergy (Verified 01/21/18 17:21) CONTINUE taking the following medications albuterol sulfate 1 puff INHALATION BID 01/21/18 [History] aspirin [Aspir-81] 81 mg PO QDAY 01/21/18 [History] cetirizine 1 tab PO DAILY 01/21/18 [History] levothyroxine 1 tab PO DAILY 01/21/18 [History] losartan 1 tab PO DAILY 01/21/18 [History] meclizine 1 tab PO DAILY PRN 01/21/18 [History] montelukast [Singulair] 1 tab PO DAILY 01/21/18 [History] simvastatin 1 tab PO HS 01/21/18 [History] New Prescriptions clopidogrel [Plavix] 75 mg PO QDAY #30 tab 01/22/18 [Rx] - Review of Systems Constitutional: Weakness ENT: No Symptoms Reported Respiratory: No Symptoms Reported Cardiovascular: No Symptoms Reported Gastrointestinal: No Symptoms Reported Genitourinary: No Symptoms Reported Skin: No Symptoms Reported Neurological: Weakness, Change in Speech, Other (HEADACHE) - Physical Exam Vital Signs: Temperature 97.9 F Pulse Rate [Right Brachial] 70 Pulse Rate [Left Brachial] 73 Pulse Rate 81 Respiratory Rate 20 Blood Pressure [Right Arm] 139/79 Blood Pressure [Left Arm] 182/88 Blood Pressure 140/70 O2 Sat by Pulse Oximetry 98 Oriented: Normal Eyes: Normal Ear: Normal Nose: Normal Throat: Normal Respiratory: Clear Throughout Cardiovascular: Normal : Normal Auscultation: Bowel Sounds: Normal Palpation: Normal Tenderness: Normal Skin: Normal Musculoskeletal: Normal Psychiatric: Normal Mood Description: Calm Speech Pattern: Clear - Assessment/Plan (1) TIA (transient ischemic attack) Status: Acute Plan: ADMIT, MRI Q AM. BP AND LIPID CONTROL. RESUME HOME MEDS, CTA CAROTIDS. PLAVIX 75MG DAILY (2) Hyperlipidemia Status: Acute (3) Pain in right eye Status: Acute (4) Hypertension Status: Acute (5) Blurred vision, right eye Status: Acute - Allergies Allergies/Adverse Reactions: Allergies Allergy/AdvReac Type Severity Reaction Status Date / Time amoxicillin Allergy RASH Verified 01/21/18 17:22 ceftriaxone [From Rocephin] Allergy RASH Verified 01/21/18 17:20 flunisolide Allergy Verified 01/21/18 17:21
[2018-01-22 13:41] VITALS: BP 134/77
[2018-01-22] MEDS ORDERED: PLAVIX PO SCH (14:00)
== END 2018-01-22 15:35 | disposition home or self-care (01) ==
LOC: ER 14:34 → MED/SURG 14:34
PROVIDERS: ADMIT Internal Medicine; ATTEND Internal Medicine
DX: H53.8 Other visual disturbances; R51 Headache; I10 Essential (primary) hypertension; G45.8 Other transient cerebral ischemic attacks and related syndromes; Z79.01 Long term (current) use of anticoagulants; H57.11 Ocular pain, right eye; E03.8 Other specified hypothyroidism; Z79.899 Other long term (current) drug therapy; E78.2 Mixed hyperlipidemia
CPT/HCPCS: 36415; 70450; 70498; 70551; 80053; 82550; 82553; 83735; 84484; 85025; 85610; 85730; 87651; 93005; 94640; 96365; 99284; A4222; G0378; J7050; J7613; J8499